=== PATIENT | male | born 1980 | race Caucasian/White ===

== ENCOUNTER 2019-06-16 16:21 | Outpatient (RCR) | payer OTHER, SELFPAY ==
--- NOTE | 2019-06-24 08:08 | PTOPEVAL ---
Thank you for referring this patient to [facility]. Please review, sign, date and return this plan of care [facility]. I agree with and certify that the following plan of care is medically necessary. Referring Physician Date Admitting Provider: Attending Provider: PHYSICIAN NOT ON STAFF Referring Provider: *PT Outpatient Evaluation Start: 06/16/19 16:38 Freq: Status: Active Protocol: Document 06/16/19 16:38 Cirilo (Rec: 06/16/19 17:01 Cirilo [id number]) Therapy Assessment Status Assessment Status Assessment Status Evaluation Evaluation Information Problem Diagnosis R shoulder pain, cervical pain Onset 06/09/19 Subjective Information patient reports he has been Query Text:As Reported By Patient/ having pain in the R shoulder Family more than the cervical spine. he reports the pain has been really noticeable since late last spring. he reports he has a history of symptoms in the R hand and elbow. 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 he reports he is having difficulty sleeping as well and difficulty using the UE without pain. he reports he recently had an injection and is doing a bit better. Prior Level of Function Comments Additional Prior Level of Function patient reports ongoing pain Comments and symptoms for months. he reports difficulty with reaching behind his head, over his head, and behind his back . patient reports he will have pain in the neck as well as of the R shoulder. however, he attributes most of this pain to weather, activity, and R shoulder activity. Pain Assessment Timing of Pain Assessment Timing of Pain Assessment Assessment Pain Scale Pain Scale Used Numeric (1 - 10) Self Report Pain Assessment Right Shoulder(s) Reported Pain Level 3 Pain Description Aching,Shooting,Soreness, Tightness Pain Frequency Chronic,Continuous Current Pain Intensity 3 Lowest Pain Intensity 2 Greatest Pain Intensity 6 Pain Aggravating Factors
== END 2019-07-14 08:28 | disposition home or self-care (01) ==
LOC: CHSPT 16:21
PROVIDERS: PCP Internal Medicine
DX: M25.511 Pain in right shoulder (principal); G89.29 Other chronic pain; M75.51 Bursitis of right shoulder; M75.81 Other shoulder lesions, right shoulder
CPT/HCPCS: 97014; 97110; 97140; 97161; G0283

== ENCOUNTER 2020-02-22 16:09 | Outpatient (CLI) | payer OTHER, SELFPAY ==
[2020-02-22 16:39] LABS: Basophils Absolute Auto 0.04 K/mm3 (0.00-0.10); Basophils Percent Auto 0.4 % (0.0-1.0); Eosinophils Absolute Auto 0.32 K/mm3 (0.02-0.50); Hematocrit 44.5 % (40.0-54.0); Hemoglobin 14.6 g/dL (14.0-18.0); Immature Granulocyte Absolute 0.04 K/mm3 (0.00-0.00); Immature Granulocyte Percent A 0.4 % (0.0-0.0); Lymphocytes Absolute Auto 2.61 K/mm3 (1.10-4.50); Lymphocytes Percent Auto 24.6 % (18.0-42.0); Mean Corpuscular HGB Conc 32.8 g/dL (32.0-36.0); Mean Corpuscular Hemoglobin 27.8 pg (27.0-31.0); Mean Corpuscular Volume 84.8 fL (78.0-102.0); Mean Platelet Volume 9.8 fl (8.7-11.0); Monocytes Percent Auto 6.6 % (2.0-11.0); Neutrophils Absolute Auto 6.9 K/mm3 (1.7-7.2); Platelet Count Result 327 K/mm3 (150-420); Red Blood Count 5.25 M/mm3 (4.70-6.10); Red Cell Distribution Width 12.5 % (11.6-14.4); White Blood Count 10.6 K/mm3 (4.8-10.8)
[2020-02-22 16:49] LABS: Creatinine Urine 246.28 mg/dL (40-278); MALB Creatinine Ratio 15.4 mg/g (0-30)
[2020-02-22 17:59] LABS: Alanine Aminotransferase 22 U/L (16-63); Albumin Level 4.2 g/dL (3.4-5.0); Alkaline Phosphatase 95 U/L (46-116); Anion Gap 10 mmol/L (8-16); Aspartate Amino Transferase 10 U/L (15-37); Bilirubin,Total 0.3 mg/dL (0.00-1.00); Blood Urea Nitrogen 15 mg/dL (7-18); Calcium 8.8 mg/dL (8.5-10.1); Carbon Dioxide 29 mmol/L (21-32); Chloride 101 mmol/L (98-108); Cholesterol 237 mg/dL (0-200); Estimated Glomerular Filt Rate > 60; Free T4 Free Thyroxine 0.96 ng/dL (0.76-1.46); Glucose 223 mg/dL (70-99); HDL Direct 48 mg/dL (40-60); LDL Cholesterol Calculated 163 mg/dL (<130); Osmolality Calculated 297 mOsm/kg (285-295); Potassium 4.1 mmol/L (3.5-5.1); Sodium 140 mmol/L (136-145); Thyroid Stimulating Hormone 1.44 uIU/mL (0.36-3.74); Total Protein 7.9 g/dL (6.4-8.2); Triglycerides 129 mg/dL (0-150)
== END 2020-02-22 16:10 | disposition home or self-care (01) ==
PROVIDERS: PCP Internal Medicine
DX: E11.65 Type 2 diabetes mellitus with hyperglycemia (principal)
CPT/HCPCS: 36415; 80053; 80061; 82043; 84439; 84443; 85025

== ENCOUNTER 2020-11-11 19:07 | Observation (INO) | payer OTHER, SELFPAY ==
--- NOTE | ~2020-11-11 | XR_ITS ---
EXAMINATION: XR chest 2V DATE: 11/11/2020 21:41 INDICATION: Nausea, vomiting and hypertension TECHNIQUE: PA and lateral views of the chest were obtained. COMPARISON: None FINDINGS: The lungs are clear with no focal airspace opacities, pulmonary edema, pleural effusion or pneumothor ax. The cardiomediastinal silhouette is normal. Mild midthoracic spondylosis. IMPRESSION: 1. No acute cardiopulmonary disease. Reviewed, dictated and finalized at location A.
--- NOTE | ~2020-11-11 | CT_ITS ---
EXAMINATION: CT abdomen pelvis wo con DATE: 11/11/2020 21:18 INDICATION: Recurrent nausea and emesis. TECHNIQUE: Computed tomography (CT) of the abdomen and pelvis was performed without intravenous contr ast. Automated exposure control and iterative reconstruction technique were employed. The dose-length product was 360.81 mGy-cm. COMPARISON: 01/19/2014 FINDINGS: Lung bases are clear. Heart size is normal. No pericardial or pleural effusion. Wall thickening in th e distal esophagus likely related to reflux esophagitis. Liver, gallbladder, spleen, pancreas and aline ateral adrenal glands are normal. Kidneys and ureters are normal with no urolithiasis, hydroureterone phrosis or perinephric/ureteral stranding. Bladder is normal. Bowels including the appendix are rosalie l. No free intraperitoneal gas or fluid. No pathologically enlarged abdominal or pelvic lymphadenopat hy. Small right and tiny left fat-containing inguinal hernias. Moderate lower lumbar facet osteoarthr itis. Otherwise minimal degenerative skeletal changes. IMPRESSION: 1. No acute intra-abdominal/pelvic process. 2. Wall thickening the distal esophagus likely related to reflux esophagitis. Reviewed, dictated and finalized at location A.
[2020-11-11 19:29] VITALS: BP 171/108; PULSE 78; RESP 22; TEMP 36.8; O2SAT 100
[2020-11-11] MEDS: ONDANSETRON INJ 4 MG/2 ML VIAL IV PUSH (19:38)
[2020-11-11] MEDS: SODIUM CHLORIDE 0.9% IV 1,000 ML 999 ML IV CONT (19:38)
[2020-11-11 19:51] LABS: Hematocrit 48.9 % (40.0-54.0); Hemoglobin 16.9 g/dL (14.0-18.0); Mean Corpuscular HGB Conc 34.6 g/dL (32.0-36.0); Mean Corpuscular Volume 81.1 fL (78.0-102.0); Mean Platelet Volume 10.1 fl (8.7-11.0); Platelet Count Result 457 K/mm3 (150-420); Red Blood Count 6.03 M/mm3 (4.70-6.10); Red Cell Distribution Width 12.9 % (11.6-14.4)
[2020-11-11 19:58] LABS: White Blood Count 23.5 K/mm3 (4.8-10.8)
[2020-11-11 20:05] LABS: Alanine Aminotransferase 32 U/L (16-63); Albumin Level 5.1 g/dL (3.4-5.0); Alkaline Phosphatase 107 U/L (46-116); Anion Gap 19 mmol/L (8-16); Aspartate Amino Transferase 16 U/L (15-37); Bilirubin,Total 0.8 mg/dL (0.00-1.00); Blood Urea Nitrogen 29 mg/dL (7-18); Calcium 9.9 mg/dL (8.5-10.1); Carbon Dioxide 21 mmol/L (21-32); Chloride 94 mmol/L (98-108); Estimated CRCL calculation 33 ml/min; Estimated Glomerular Filt Rate 25; Lipase 33 U/L (73-393); Osmolality Calculated 303 mOsm/kg (285-295); Potassium 3.9 mmol/L (3.5-5.1); Sodium 134 mmol/L (136-145); Total Protein 9.2 g/dL (6.4-8.2)
[2020-11-11 20:06] LABS: Glucose 459 mg/dL (70-99)
[2020-11-11 20:10] LABS: Lactic Acid Reflex 4.2 mmol/L (0.4-2.0)
[2020-11-11 20:11] LABS: Band Neutrophils Percent 2 % (0-6); Basophils Percent Manual 0 % (0-1); Eosinophils Percent Manual 0 % (1-6); Lymphocytes Absolute Manual 1.88 K/mm3 (1.1-4.5); Lymphocytes Percent Manual 8 % (18-44); Monocytes Absolute Manual 0.47 K/mm3 (0.1-0.90); Monocytes Percent Manual 2 % (3-9); Neutrophils Absolute Manual 21.15 K/mm3 (1.3-6.7); Neutrophils Percent Manual 88 % (46-73); Platelet Estimate Increased (Adequate); Total Cells Counted 100
[2020-11-11] MEDS: SODIUM CHLORIDE 0.9% IV 1,000 ML 500 ML IV CONT (20:25)
--- NOTE | 2020-11-11 20:48 | ED.NAVMDI ---
HPI - Nausea/Vomiting/Diarrhea General Chief complaint: Nausea/Vomiting/Diarrhea Stated complaint: vomiting(overheated) Time Seen by Provider: 11/11/20 19:40 Source: patient Mode of arrival: ambulatory Limitations: no limitations History of Present Illness HPI Narrative: Patient comes in with recurrent nausea and emesis. Nausea and vomiting started today at 1pm. He has stated he has had chills, but no fever. He had his second Covid vaccination about 1 month ago. He had been doing well up until a little past lunch today when he developed recurrent nausea and emesis. He ate a Slim Jenaro and a Banana for lunch, and drank 4 bottles of Gator aid. He does not think anything he ate or drank could have been bad. He doubts food poisoning, but Gator aid had been opened. MD elicited complaint: nausea and vomiting Onset (ago): hour(s) Description of vomiting: food contents Associated nausea: Yes Associated abdominal pain: No Location of pain: none Exacerbating factors: eating Relieving factors: rest Associated symptoms: denies other symptoms, fever/chills (chills today) and weakness Related Data Home Medications Medication Instructions Recorded Confirmed metformin 500 mg tablet,extended 1,000 mg PO DAILY tablet 10/03/20 11/11/20 release 24hr Allergies Allergy/AdvReac Type Severity Reaction Status Date / Time No Known Allergies Allergy Unverified 04/23/19 09:33 Review of Systems Constitutional: Constitutional: Reports no additional constitutional complaints Eyes: Eyes: Reports no additional eye complaints ENT: Reports system reviewed and no additional complaints, except as documented Cardiovascular: Cardiovascular: Reports no additional cardiovascular complaints Respiratory: Respiratory: Reports no additional respiratory complaints Gastrointestinal: Gastrointestinal: Reports no additional gastrointestinal complaints Genitourinary: Genitourinary: Reports no additional male genitourinary complaints Musculoskeletal: Musculoskeletal: Reports no additional musculoskeletal complaints Integumentary/Breasts: Skin/Breast: Reports system reviewed and no additional complaints, except as docu Neurologic: Reports system reviewed and no additional complaints, except as documented Psychiatric: Psychiatric: Reports no additional psychiatric complaints Endocrine: Endocrine: Reports no additional endocrine complaints Hematologic/Lymphatic: Hematologic/Lymphatic: Reports no additional hematologic/lymphatic complaints Allergic/Immunologic: Allergic/Immunologic: Reports no additional allergic/immunologic complaints [facility] Past Medical History Medical History (Updated 11/11/20 @ 21:44 by Rajendra Funez MD) Diabetes type 2, uncontrolled Surgical History Surgical History (Updated 11/11/20 @ 21:34 by Rajendra Funez MD) Hx of tonsillectomy Family History Family History Other Diabetes mellitus Family history of glaucoma Family history of thyroid disease Hypertension Social History Social History (Updated 11/11/20 @ 21:35 by Rajendra Funez MD) Smoking status: Never smoker Alcohol intake: former Substance use: never Gender identity (if verbalized by the patient): Male Sexual Orientation (if Verbalized by the Patient): Straight or Heterosexual Spiritual care concerns: No Exam Const: General: no acute distress and alert Orientation/consciousness: patient oriented x3 HENMT: Head: normal to inspection General nose exam: Normal external nose present and Normal nares present Face and sinus: normal facial exam Mouth: Yes Normal oral and palatal mucosa present Other: throat is erythematous, no tonsils seen Eyes: Cornea: corneas normal Chest: Chest palpation & inspection: normal inspection of the chest Resp: Effort & Inspection: normal respiratory effort Auscultation: clear to auscultation bilaterally Cardio: Rate: regular rate Rhythm: regular
[2020-11-11 20:56] VITALS: BP 175/100; PULSE 84; RESP 18; O2SAT 100
[2020-11-11 20:59] LABS: Acetone Negative (Negative)
--- NOTE | 2020-11-11 21:10 | ECG_ITS ---
Measurements Intervals Climax Rate: 78 P: 68 IN: 121 QRS: 58 QRSD: 88 T: 4 QT: 386 QTc: 442 Interpretive Statements SINUS RHYTHM BORDERLINE ST-T WAVE ABNORMALITY- INFERIOR LEADS BASELINE ARTIFACT- II, III, AVL, AVF, V3-V6 BORDERLINE ECG Electronically Signed On 11-12-2020 7:26:22 CDT by Adi Mclaughlin D.O.
[2020-11-11] MEDS: PROCHLORPERAZINE EDISYLATE 10 MG/2 ML VIAL 5 MG IV PUSH (21:16)
[2020-11-11 21:17] LABS: Appearance Urine Clear (Clear); Bilirubin Urine Negative (Negative); Glucose Urine UA 3+ (Negative); Ketones Urine Trace (Negative); Leukocyte Esterase Ur Negative LEU/UL (Negative); Nitrate Urine Negative (Negative); Protein Urine 2+ (Negative); Specific Grav Ur >= 1.030 (1.010-1.020); Urobilinogen Urine 0.2 mg/dL (0.2-1.0)
[2020-11-11 21:20] LABS: Add Urine Microscopic? YES; Blood Urine Trace-lysed (Negative); Color Urine Light Yellow (Yellow); RBC Urine None seen /hpf (0-2); Squamous Epithelial Cell Urine Few /hpf (Few); WBC Urine None seen /hpf (0-3)
[2020-11-11 21:21] LABS: Bacteria Urine Trace /hpf
[2020-11-11 21:29] LABS: Troponin I < 4.0 ng/L (0.00-60.4)
[2020-11-11] MEDS: INSULIN HUMAN REGULAR (*BKC) 100 UNITS/ML 10 UNITS IV PUSH (22:00)
[2020-11-11 22:09] VITALS: BP 160/80; PULSE 68; RESP 16; O2SAT 100
[2020-11-11 22:15] VITALS: BP 160/80; PULSE 68; RESP 16; O2SAT 100
[2020-11-11 22:30] VITALS: BP 156/82; PULSE 86; RESP 20; TEMP 36.8; O2SAT 94
--- NOTE | 2020-11-11 22:35 | PC.NURSE ---
Patient shivering. Warm blanket given. Patient alert and oriented. Answered all questions without difficulty. Respirations even and unlabored. No SOB noted. Patient denies nausea @ this time. Denies pain/complaints/needs @ this time. Call light in reach.
--- NOTE | 2020-11-11 22:35 | ADMGEN ---
This patient, Ricky Domingo, was admitted to 2nd Floor Room 226-2. Patient oriented to hospital policies and general routines including ID bracelet, bed and alarms, visiting hours, pain management, procedures, bathroom and other care routines, personal items, smoking policy, room service/diet, and visiting hours. Information on how to activate the Rapid Response Team has been discussed. Patient are encouraged to report perceived risks to care and to ask questions if they do not understand what they are told or what they should do.
[2020-11-11 22:48] LABS: Reflex Lactic Acid Yes or No Add Lactic
[2020-11-11] MEDS: SODIUM CHLORIDE 0.9% IV 1,000 ML 200 ML IV CONT (22:48)
--- NOTE | 2020-11-11 23:30 | PC.NURSE ---
Patient lying in bed. Denies pain/nausea/complaints @ this time. No distress noted. Call light in reach.
--- NOTE | 2020-11-11 23:53 | PC.NURSE ---
lactate level and glucose level called to Dr Day, orders to be put in for additional 1 Liter bolus
[2020-11-11 23:54] LABS: Glucose Point of Care 279 mg/dl (65-105)
[2020-11-12] VITALS: BP 174/93; PULSE 86; RESP 20; TEMP 37.1; O2SAT 98
--- NOTE | 2020-11-12 00:20 | PC.NURSE ---
Dr Funez saw patient and discussed tests being done and why. Patient had 500ml emesis with black specks in it. Dr Funez saw emesis. Patient says he just started feeling nauseated all of a sudden, had the emesis and the nausea kind of left . Patient denies any other pain/nausea/complaints/needs @ this time. Call light in reach.
[2020-11-12 00:24] LABS: Base Excess ABG -2.8 mmol/L (0-2); HCO3 ABG 19.8 mmol/L (23-29); Oxygen Content ABG 20.7 %vol (16.0-22.0); Oxygen Saturation ABG 94.7 % (95-97); Oxyhemoglobin 94.2 % (94-100); PCO2 ABG 29.4 mmHg (35-45); PO2 ABG 76.7 mmHg (80-90); Total Hemoglobin 15.6 g/dL; pH ABG 7.45 (7.35-7.45)
[2020-11-12 00:27] LABS: Device ROOM AIR; Modified Allen's Test Pass; Site Drawn LEFT RADIAL
[2020-11-12] MEDS: ONDANSETRON INJ 4 MG/2 ML VIAL IV PUSH ×2 (00:27→15:00)
--- NOTE | 2020-11-12 00:30 | PC.NURSE ---
Zofran given due to patient says he's nauseous again. No further emesis as of this time.
[2020-11-12 00:39] LABS: Anion Gap 12 mmol/L (8-16); Blood Urea Nitrogen 28 mg/dL (7-18); Calcium 8.8 mg/dL (8.5-10.1); Carbon Dioxide 28 mmol/L (21-32); Chloride 101 mmol/L (98-108); Estimated CRCL calculation 46 ml/min; Estimated Glomerular Filt Rate 33; Glucose 307 mg/dL (70-99); Osmolality Calculated 309 mOsm/kg (285-295); Potassium 3.9 mmol/L (3.5-5.1); Sodium 141 mmol/L (136-145)
[2020-11-12] MEDS: METOCLOPRAMIDE HCL INJ 10 MG/2 ML VIAL IV PUSH ×4 (00:48→23:22)
[2020-11-12] MEDS: PANTOPRAZOLE SODIUM IV 40 MG VIAL IV PUSH (00:48)
--- NOTE | 2020-11-12 00:50 | PC.NURSE ---
Patient complaining of still being nauseous. No further emesis. Reglan and Protonix given. No other complaints. Call light in reach.
[2020-11-12 00:51] LABS: Salicylate 1.2 mg/dL (2.8-20.0)
[2020-11-12 00:53] LABS: D Dimer 0.19 mg/L (0.19-0.50)
[2020-11-12] MEDS: SODIUM CHLORIDE 0.9% IV 1,000 ML 999 ML IV CONT (00:55)
--- NOTE | 2020-11-12 01:00 | PC.NURSE ---
Patient having dry heaves @ this time.
[2020-11-12 01:06] LABS: Acetaminophen < 2 ug/mL (10-30)
[2020-11-12 01:06] LABS: Ethanol < 3 mg/dL (0-6)
--- NOTE | 2020-11-12 01:15 | PC.NURSE ---
Patient had 300ml mostly clear with phlegm emesis. After finished patient said he feels a little better. Call light in reach.
--- NOTE | 2020-11-12 01:30 | PC.NURSE ---
No nausea or emesis @ this time. Patient says he feels okay . Patient says his stomach is a little nauseated but less than earlier. No distress noted. Call light in reach.
[2020-11-12] MEDS: SODIUM CHLORIDE 0.9% IV 1,000 ML 200 ML IV CONT ×5 (02:51→23:22)
--- NOTE | 2020-11-12 02:55 | PC.NURSE ---
Patient woke up while nurse was changing IV NS bags and told nurse he isn't nauseous at all and has finally been sleeping some. Denies n/v, pain/complaints of any kind @ this time. No distress noted. Call light in reach.
--- NOTE | 2020-11-12 04:45 | PC.NURSE ---
Patient appears to be sleeping by the rise and fall of his chest. NS infusing to site in RAC without difficulty. No distress noted. Call light in reach.
[2020-11-12 05:39] LABS: Basophils Absolute Auto 0.02 K/mm3 (0.00-0.10); Basophils Percent Auto 0.1 % (0.0-1.0); Hematocrit 42.4 % (40.0-54.0); Hemoglobin 14.3 g/dL (14.0-18.0); Immature Granulocyte Absolute 0.05 K/mm3 (0.00-0.00); Immature Granulocyte Percent A 0.4 % (0.0-0.0); Lymphocytes Absolute Auto 0.81 K/mm3 (1.10-4.50); Lymphocytes Percent Auto 5.9 % (18.0-42.0); Mean Corpuscular HGB Conc 33.7 g/dL (32.0-36.0); Mean Corpuscular Hemoglobin 28.2 pg (27.0-31.0); Mean Corpuscular Volume 83.6 fL (78.0-102.0); Mean Platelet Volume 10.1 fl (8.7-11.0); Monocytes Absolute Auto 0.67 K/mm3 (0.10-0.90); Monocytes Percent Auto 4.9 % (2.0-11.0); Neutrophils Absolute Auto 12.2 K/mm3 (1.7-7.2); Neutrophils Percent Auto 88.7 % (50.0-70.0); Platelet Count Result 323 K/mm3 (150-420); Red Blood Count 5.07 M/mm3 (4.70-6.10); Red Cell Distribution Width 13.1 % (11.6-14.4); White Blood Count 13.8 K/mm3 (4.8-10.8)
[2020-11-12 05:54] LABS: Lactic Acid Reflex 1.6 mmol/L (0.4-2.0)
[2020-11-12 06:00] LABS: Alanine Aminotransferase 25 U/L (16-63); Albumin Level 3.8 g/dL (3.4-5.0); Alkaline Phosphatase 79 U/L (46-116); Anion Gap 12 mmol/L (8-16); Aspartate Amino Transferase < 10 U/L (15-37); Bilirubin,Total 0.7 mg/dL (0.00-1.00); Blood Urea Nitrogen 25 mg/dL (7-18); Calcium 8.3 mg/dL (8.5-10.1); Carbon Dioxide 25 mmol/L (21-32); Chloride 105 mmol/L (98-108); Estimated CRCL calculation 68 ml/min; Estimated Glomerular Filt Rate 53; Glucose 277 mg/dL (70-99); Osmolality Calculated 308 mOsm/kg (285-295); Potassium 3.8 mmol/L (3.5-5.1); Sodium 142 mmol/L (136-145); Total Protein 7.2 g/dL (6.4-8.2)
[2020-11-12 06:02] LABS: Troponin I 16.1 ng/L (0.00-60.4)
--- NOTE | 2020-11-12 06:51 | PM.OP ---
Procedure Note - Brief Procedure Note - Brief Date of procedure: 11/12/20 Pre-op diagnosis: vomiting(overheated) Surgeon: Rajendra Funez MD During the night of 11/12/2020 the patient was closely observed. At one point we got back a lactic acid which was elevated at 6.0. I ultimately came to the conclusion this must have been a lab error, since his anion gap was closing, and his bicarb was coming up. So although I initially gave him increased fluids, this was decreased back to 200cc/hr after BMP and ABG was reviewed.
[2020-11-12 08:00] VITALS: BP 152/87; PULSE 78; RESP 20; TEMP 37.2; O2SAT 97
[2020-11-12 08:00] LABS: Glucose Point of Care 227 mg/dl (65-105)
[2020-11-12 09:11] LABS: Creatine Kinase 200 U/L (39-308)
--- NOTE | 2020-11-12 11:04 | PM.IMHP ---
H&P: HPI History of Present Illness Date/Time: 11/12/20 11:04 Ricky Domingo is a 40 year old male admitted under Observation for Hyperglycemia, Dehydration, Leukocytosis. 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 He became nauseated and began to vomit several times after having Gator aid and banana. Pt states that he also started having hiccups over the last 24 hours. Pt has Leukocytosis and questioned the Pt about any ill contacts, bug bites, potential for consuming undercooked foods to which he responded no. Leukocytosis likely d/t Hyperglycemia and Dehydration. Pt was given approximately 3 L NS in the ER followed by 200ml/h NS gtts and clear liquid diet. Only PMHx of diabetes with his last A1C being 6.4 on October 03, 2020. This AM Pt states he is feeling much better aside from constant hiccups and phlegm production. Pt denies CP, SOB, Abdominal pain/issues, muscle weakness/pain, difficulty urinating, changes in vision or hearing, no balance issues, no fevers/chills. Chief Complaint: Nausea and Vomiting Review of Systems Review of Systems: All systems reviewed & are unremarkable except as noted in HPI and below PMFSH Past Medical History Medical History Diabetes type 2, uncontrolled Surgical History Surgical History Hx of tonsillectomy Family History Family History Other Diabetes mellitus Family history of glaucoma Family history of thyroid disease Hypertension Social History Social History Smoking status: Never smoker Second hand tobacco smoke exposure: No Alcohol intake: former Substance use: never Gender identity (if verbalized by the patient): Male Sexual Orientation (if Verbalized by the Patient): Straight or Heterosexual Spiritual care concerns: No Meds Home Medications and Allergies Home Medications Medication Instructions Recorded Confirmed Type pen needle, diabetic 31 gauge x #100 ea 09/07/20 11/11/20 Rx 3/16 blood sugar diagnostic #100 each 10/03/20 11/11/20 Rx empagliflozin 25 mg-linagliptin 5 1 tablet PO DAILY #90 tablet 10/03/20 11/11/20 Rx mg tablet insulin degludec 100 unit/mL (3 20 unit SUB-Q DAILY 90 Days #18 ml 10/03/20 11/11/20 Rx mL) subcutaneous pen lancets 30 gauge #100 each 10/03/20 11/11/20 Rx metformin 500 mg tablet,extended 1,000 mg PO DAILY tablet 10/03/20 11/11/20 History release 24hr Allergies Allergy/AdvReac Type Severity Reaction Status Date / Time No Known Allergies Allergy Unverified 04/23/19 09:33 Vital Signs Vital Signs - 24 hr 11/11/20 19:29 11/11/20 20:56 11/11/20 22:09 Temperature 98.2 F Pulse Rate 78 84 68 Respiratory Rate 22 H 18 16 Blood Pressure 171/108 H 175/100 H 160/80 H Pulse Oximetry 100 100 100 11/11/20 22:15 11/11/20 22:30 11/12/20 00:00 Temperature 98.3 F 98.8 F Pulse Rate 68 86 86 Respiratory Rate 16 20 20 Blood Pressure 160/80 H 156/82 H 174/93 H Pulse Oximetry 100 94 98 11/12/20 08:00 Temperature 99 F Pulse Rate 78 Respiratory Rate 20 Blood Pressure 152/87 H Pulse Oximetry 97 Exam Const: General: cooperative, no acute distress, well developed, alert, awake, Physically active, tired appearing and uncomfortable (d/t constant hiccups) Nutritional Appearance: average body habitus HENMT: Head: normal to inspection and normocephalic Ears: hearing grossly normal bilaterally, external ears normal, TM's normal bilaterally, no periauricular adenopathy and other General nose exam: Normal external nose present and No nasal discharge present Face and sinus: normal facial exam Mouth: Yes Normal oral and palatal mucosa present, Yes tongue normal, Yes oropharynx normal and Yes moist mucous membranes Throat: posterior oropharynx nor
[2020-11-12 11:11] VITALS: BMI 25.7
[2020-11-12 11:58] LABS: Glucose Point of Care 244 mg/dl (65-105)
[2020-11-12 16:00] VITALS: BP 118/76; PULSE 85; RESP 16; TEMP 37.7; O2SAT 97
[2020-11-12 17:00] LABS: Glucose Point of Care 200 mg/dl (65-105)
[2020-11-12 21:02] LABS: Glucose Point of Care 189 mg/dl (65-105)
--- NOTE | 2020-11-12 21:15 | PC.NURSE ---
Patient denies any c/o pain. Denies any n/v. Hiccups present but patient states better at this time. Continues with IV fluids. Patient reports loss of appetite. Monitoring.
[2020-11-13] VITALS: BP 191/86; PULSE 84; RESP 20; TEMP 37.4; O2SAT 100
--- NOTE | 2020-11-13 00:13 | PC.NURSE ---
Denies any c/o n/v. Hiccups present. Continues with fluids at 200ml/hr, NS. BP at 191/86, asymptomatic. bundle breaker notified.
[2020-11-13] MEDS: SODIUM CHLORIDE 0.9% IV 1,000 ML 200 ML IV CONT (04:18)
--- NOTE | 2020-11-13 04:30 | PC.NURSE ---
Patient denies any c/o pain. No n/v noted. Sleeping at this time. Continues with IV fluids of NS at 200ml/hr.
[2020-11-13] MEDS: METOCLOPRAMIDE HCL INJ 10 MG/2 ML VIAL IV PUSH (05:37)
[2020-11-13 05:57] LABS: Basophils Absolute Auto 0.02 K/mm3 (0.00-0.10); Basophils Percent Auto 0.1 % (0.0-1.0); Eosinophils Absolute Auto 0.03 K/mm3 (0.02-0.50); Eosinophils Percent Auto 0.2 % (1.0-6.0); Hematocrit 41.2 % (40.0-54.0); Hemoglobin 13.9 g/dL (14.0-18.0); Immature Granulocyte Absolute 0.07 K/mm3 (0.00-0.00); Immature Granulocyte Percent A 0.5 % (0.0-0.0); Lymphocytes Absolute Auto 2.46 K/mm3 (1.10-4.50); Lymphocytes Percent Auto 16.7 % (18.0-42.0); Mean Corpuscular HGB Conc 33.7 g/dL (32.0-36.0); Mean Corpuscular Hemoglobin 28.1 pg (27.0-31.0); Mean Corpuscular Volume 83.2 fL (78.0-102.0); Mean Platelet Volume 9.5 fl (8.7-11.0); Monocytes Percent Auto 8.8 % (2.0-11.0); Neutrophils Absolute Auto 10.8 K/mm3 (1.7-7.2); Neutrophils Percent Auto 73.7 % (50.0-70.0); Platelet Count Result 294 K/mm3 (150-420); Red Blood Count 4.95 M/mm3 (4.70-6.10); Red Cell Distribution Width 12.8 % (11.6-14.4); White Blood Count 14.7 K/mm3 (4.8-10.8)
[2020-11-13 06:18] LABS: Alanine Aminotransferase 21 U/L (16-63); Albumin Level 3.7 g/dL (3.4-5.0); Alkaline Phosphatase 73 U/L (46-116); Anion Gap 8 mmol/L (8-16); Aspartate Amino Transferase 11 U/L (15-37); Blood Urea Nitrogen 15 mg/dL (7-18); Calcium 8.4 mg/dL (8.5-10.1); Carbon Dioxide 28 mmol/L (21-32); Chloride 100 mmol/L (98-108); Estimated CRCL calculation 91 ml/min; Estimated Glomerular Filt Rate > 60; Glucose 177 mg/dL (70-99); Osmolality Calculated 286 mOsm/kg (285-295); Potassium 3.9 mmol/L (3.5-5.1); Sodium 136 mmol/L (136-145)
[2020-11-13 08:00] VITALS: BP 162/99; PULSE 84; RESP 20; TEMP 37.1; O2SAT 97
--- NOTE | 2020-11-13 10:15 | PM.DS ---
DS: Admitting Diagnosis Admitting Diagnosis Admitting Diagnosis: Dehydration, Hyperglycemia, N/V DS: Discharge Diagnosis Discharge Diagnosis (1) Uncontrolled type 2 diabetes mellitus with hyperglycemia, with long-term current use of insulin: Code(s): E11.65 - Type 2 diabetes mellitus with hyperglycemia; Z79.4 - senior living (current) use of insulin Status: Acute Assessment and Plan: Glucose levels coming down post Insulin in ER, IVFs administered, Pt tolerating PO fluids, Accu-checks ACHS, SSI, advanced to Diabetic Diet, Hypoglycemic protocol in place, anion gap has closed, Acetone was normal, home DM medications were held Pt was NPO until clear liquids started (do not believe his home DM meds are in our formulary) started SSI, 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 11/13/2020 Glucose has been controlled, will DC Pt home on his usual medication and he is to follow up with his PCP or [facility] Bean [facility] (2) Dehydration after exertion: Code(s): E86.0 - Dehydration Status: Acute Assessment and Plan: Pt current fluid balance is +4,325 as of this AM with urine output of 0.29 ml/kg/h, Tolerating Clear liquids, advancing to Diabetic Diet and if tolerated with DC IVFs, will recheck labs in the AM 11/13/2020 Tolerating PO fluids and food well, continues to have hiccups off and on and will give Pt Reglan and Protonix PO (3) Acute renal failure: Code(s): N17.9 - Acute kidney failure, unspecified Status: Acute Assessment and Plan: Improving after IVFs as noted above, will monitor, ensure Pt is tolerating PO fluids and he is at this time, BUN 25, Cr 1.47 11/13/2020 renal function normalized, encouraged Pt to hydrate when in the heat. (4) Nausea & vomiting: Code(s): R11.2 - Nausea with vomiting, unspecified Status: Acute Assessment and Plan: Pt also has Hiccups, Zofran and Compazine did well for Pt's nausea and vomiting, Changed Compazine to Reglan scheduled for his Hiccups 11/13/2020 Pt has not had any more N/V over night and this AM (5) Leukocytosis, unspecified: Code(s): D72.829 - Elevated white blood cell count, unspecified Status: Acute Assessment and Plan: Likely due to Hyperglycemia and Dehydration, Improved this AM after IVF boluses and gtts, there is no signs of infection from head to toes aside from an old healing wound on the Left Lower Extremity which is not red, draining, or warm to touch, current WBC 13.8. 11/13/2020 WBC has improved, no signs of infection, Pt encouraged to go to PCP or return to hospital should he feel ill again (6) Hypertension: Code(s): I10 - Essential (primary) hypertension Status: Acute Assessment and Plan: [place] today that Pt has a history of hypertension and he use to be on Atenolol, his BP was elevated this AM at 191/86 and after RN Geovanna rechecked it was 162/99. Will restart Atenolol with Pt to f/u with his PCP within a week. DS: Summary Hospital Course Hospital Course: Glucose improved, Rehydrated, restarted Pts BP medications, no more N/V, Hiccups almost resolved Time Spent with Patient Time attestation: Total time spent providing and/or coordinating discharge services: < 30 minutes Exam Const: General: cooperative, healthy appearing, comfortable, no acute distress, well developed, alert, awake and Physically active Nutritional Appearance: average body habitus Resp: Effort & Inspection: normal respiratory effort Auscultation: clear to auscultation bilaterally Cardio: Rate: regular rate Heart sounds: S1 normal heart sound present and S2 normal heart sound present GI: Inspection: normal to inspection GI Palp: Yes Soft to palpation and No Tenderness to palpation present (GI) Auscultation: normal bowel sounds Skin: General skin exam: normal color and dry skin Lesions: no lesions Rashes: no rashes Trauma: no lacerations or abrasions Wounds: wounds noted (small old wound
--- NOTE | 2020-11-15 10:54 | PC.NURSE ---
Unable to contact for discharge call back.
[2020-11-15 12:23] LABS: Glucose Point of Care 366 mg/dl (65-105)
== END 2020-11-13 11:00 | disposition home or self-care (01) ==
LOC: CHSED 21:45 → CHS2ND 22:08
PROVIDERS: Nurse Practitioner Family; Admitting Provider Emergency Medicine; Emergency Provider Emergency Medicine; PCP Internal Medicine; Visit Provider Emergency Medicine
DX: E86.0 Dehydration (principal); N17.9 Acute kidney failure, unspecified; R11.2 Nausea with vomiting, unspecified; R19.7 Diarrhea, unspecified; E11.65 Type 2 diabetes mellitus with hyperglycemia; Z79.4 Long term (current) use of insulin; I10 Essential (primary) hypertension
CPT/HCPCS: 36415; 36600; 71046; 74176; 80048; 80053; 80307; 81001; 82010; 82550; 82805; 82948; 83605; 83690; 84484; 85025; 85380; 87040; 93005; 96361; 96374; 96375; 96376; 99285; C9113; G0378; J0780; J1815; J2405; J2765; J7030

== ENCOUNTER 2020-12-21 02:45 | Day surgery (SDC) | payer OTHER, SELFPAY ==
[2020-12-16 08:26] VITALS: BMI 27.3
--- NOTE | 2020-12-20 10:37 | WPDANESEPPF ---
Anes - Initial Pre Proc Eval Procedure: Operation Date: 12/21/20 10:30 Proposed Procedures p Esophagogastroduodenoscopy - Barrie Weinberg MD Date/Time: 12/20/20 10:37 Surgeon: Barrie Weinberg MD Pre Op Diagnosis: abnormal CAT scan Patient Data Age: 40 Gender: M Height: 1.78 m Weight: 86.3 kg Allergies Allergy/AdvReac Type Severity Reaction Status Date / Time No Known Allergies Allergy Verified 12/21/20 09:39 Home Medications Medication Instructions Recorded Confirmed Type pen needle, diabetic 31 gauge x #100 ea 09/07/20 12/21/20 Rx 3/16 blood sugar diagnostic #100 each 10/03/20 12/21/20 Rx lancets 30 gauge #100 each 10/03/20 12/21/20 Rx atenolol 25 mg PO DAILY #30 tablet 11/13/20 12/21/20 Rx pantoprazole [Protonix] 40 mg PO QAM #14 tablet 11/13/20 12/21/20 Rx empagliflozin-linagliptin 25 tablet PO DAILY 12/16/20 12/21/20 History [Glyxambi] insulin degludec [Tresiba 100 unit SUBCUT DAILY 12/16/20 12/16/20 History FlexTouch U-100] metformin 500 mg PO BID 12/16/20 12/16/20 History Patient hx anesthesia problems: none Family hx anesthesia problems: none PMFSH Past Medical History Medical History (Updated 11/13/20 @ 10:19 by DEBI Teixeira) Diabetes type 2, uncontrolled Hypertension Surgical History Surgical History Hx of tonsillectomy Family History Family History Other Diabetes mellitus Family history of glaucoma Family history of thyroid disease Hypertension Social History Social History Smoking status: Never smoker Second hand tobacco smoke exposure: No Alcohol intake: former Substance use: never Substance use type: does not use Living arrangements: with family Gender identity (if verbalized by the patient): Male Spiritual care concerns: No Anes - Eval Final PreProcedure Day of Procedure 12/20/20 10:37 Patient weight: overweight Heart: regular rate and rhythm Lungs: clear to auscultation and normal air movement Airway: Mallampati scale class II Neurological: alert and oriented Last oral intake: >/= 8 hours ASA classification: III Emergent: no Anesthetic plan: proceed Anesthesia type and monitoring: general and standard monitoring Informed Consent: The patient's anesthetic plan and its attendant risks and benefits were discussed with the patient/family/POA. Questions were solicited and answers provided to the satisfaction of the patient/family/POA.
[2020-12-21] MEDS: LACTATED RINGERS 1,000 ML 150 ML IV CONT (09:28)
[2020-12-21 09:38] LABS: Glucose Point of Care 141 mg/dl (65-105)
[2020-12-21 09:45] VITALS: BP 133/91; PULSE 75; RESP 16; TEMP 36.4; O2SAT 99; BMI 26.4
--- NOTE | 2020-12-21 10:14 | PM.HPGS ---
History of Present Illness History of Present Illness Consent: Risks, benefits, and alternatives have been discussed and questions answered. Patient agrees to proceed with procedure. Chief complaint: abnormal CAT scan Narrative: Ricky Domingo is a 40 year old male with n/v, esophagitis (reviewed CT scan) better with protonix bid and zofran as needed, never had egd. Father had kaba's with esophageal cancer. Review of Systems Constitutional: Constitutional: Denies headache(s) and Denies weakness Eyes: Eyes: Denies blurry vision ENT: Reports Normal hearing present, Denies headache(s) and Denies neck pain Cardiovascular: Cardiovascular: Denies chest pain and Denies dyspnea Respiratory: Respiratory: Denies dyspnea Gastrointestinal: Gastrointestinal: Reports no additional gastrointestinal complaints Genitourinary: Genitourinary: Denies dysuria Musculoskeletal: Musculoskeletal: Denies neck pain Integumentary/Breasts: Skin/Breast: Denies dry skin Neurologic: Reports Normal hearing present, Denies headache(s) and Denies weakness Psychiatric: Psychiatric: Denies anxiety Endocrine: Endocrine: Denies change in body appearance Hematologic/Lymphatic: Hematologic/Lymphatic: Denies easy bleeding Allergic/Immunologic: Allergic/Immunologic: Denies urticaria PMFSH Past Medical History Medical History (Updated 12/21/20 @ 10:15 by Barrie Weinberg MD) Abnormal CT scan, esophagus Diabetes type 2, uncontrolled Hypertension Surgical History Surgical History Hx of tonsillectomy Family History Family History Other Diabetes mellitus Family history of glaucoma Family history of thyroid disease Hypertension Social History Social History Smoking status: Never smoker Second hand tobacco smoke exposure: No Alcohol intake: former Substance use: never Substance use type: does not use Living arrangements: with family Gender identity (if verbalized by the patient): Male Spiritual care concerns: No Meds Home Medications and Allergies Home Medications Medication Instructions Recorded Confirmed Type pen needle, diabetic 31 gauge x #100 ea 09/07/20 12/21/20 Rx 3/16 blood sugar diagnostic #100 each 10/03/20 12/21/20 Rx lancets 30 gauge #100 each 10/03/20 12/21/20 Rx atenolol 25 mg PO DAILY #30 tablet 11/13/20 12/21/20 Rx pantoprazole [Protonix] 40 mg PO QAM #14 tablet 11/13/20 12/21/20 Rx empagliflozin-linagliptin 25 tablet PO DAILY 12/16/20 12/21/20 History [Glyxambi] insulin degludec [Tresiba 100 unit SUBCUT DAILY 12/16/20 12/16/20 History FlexTouch U-100] metformin 500 mg PO BID 12/16/20 12/16/20 History Allergies Allergy/AdvReac Type Severity Reaction Status Date / Time No Known Allergies Allergy Verified 12/21/20 09:39 Vital Signs Vital Signs - 24 hr 12/21/20 09:45 Temperature 97.6 F Pulse Rate 75 Respiratory Rate 16 Blood Pressure 133/91 H Pulse Oximetry 99 Exam Const: General: comfortable and no acute distress HENMT: General nose exam: Normal nares present Eyes: General: appearance normal, both eyes and all related structures Neck: Neck: no JVD Resp: Auscultation: clear to auscultation bilaterally Cardio: Rate: regular rate Rhythm: regular rhythm GI: Inspection: non-distended GI Palp: Yes Soft to palpation Skin: General skin exam: normal color Neuro: General: gait normal Speech: normal speech Extrem: General: normal to inspection Psych: Mental Status: mental status grossly normal Assessment and Plan Assessment and plan (1) Nausea & vomiting: Code(s): R11.2 - Nausea with vomiting, unspecified Status: Acute Assessment and Plan: egd with bx, possible esophagitis, already on ppi and doing better (2) Abnormal CT scan, esophagus:
[2020-12-21] MEDS: BENZOCAINE (*SP) 60 ML SPRAY CAN (HURRICAINE) 1 SPRAY MUCOUS MEM (10:15)
[2020-12-21 10:27] VITALS: BP 107/75; PULSE 75; RESP 18; O2SAT 100
[2020-12-21 10:37] VITALS: BP 112/79; PULSE 80; RESP 22; O2SAT 100
[2020-12-21 10:45] LABS: Glucose Point of Care 131 mg/dl (65-105)
[2020-12-21 10:47] VITALS: BP 128/92; PULSE 72; RESP 20; O2SAT 100
== END 2020-12-21 10:53 | disposition home or self-care (01) ==
PROVIDERS: PCP Internal Medicine; Visit Provider Internal Medicine Gastroenterology
PROC: 0DJ08ZZ Inspection of Upper Intestinal Tract, Via Natural or Artificial Opening Endoscopic (ICD-10-PCS; CPT 43235; principal; 2020-12-21 10:30)
DX: K21.9 Gastro-esophageal reflux disease without esophagitis (principal); K29.70 Gastritis, unspecified, without bleeding; R11.2 Nausea with vomiting, unspecified; E11.9 Type 2 diabetes mellitus without complications; I10 Essential (primary) hypertension; Z79.51 Long term (current) use of inhaled steroids; Z79.4 Long term (current) use of insulin; Z79.84 Long term (current) use of oral hypoglycemic drugs
CPT/HCPCS: 43239; 82948; 88305; J2704; J7120

== ENCOUNTER 2021-01-30 14:27 | Outpatient (CLI) | payer OTHER, SELFPAY ==
--- NOTE | ~2021-01-30 | CT_ITS ---
EXAMINATION: CT abdomen pelvis wo con DATE: 01/30/2021 14:46 INDICATION: Acute kidney failure. Renal stone. Nausea and vomiting. TECHNIQUE: Computed tomography (CT) of the abdomen and pelvis was performed without intravenous contr ast. Automated exposure control and iterative reconstruction technique were employed. The dose-length product was 498.24 mGy-cm. COMPARISON: CT abdomen and pelvis 11/11/2020, 08/19/13 FINDINGS: The visualized portions of the lung bases are clear without pneumonia or pleural effusion. The heart size is normal. No pericardial effusion. The liver, gallbladder, spleen, pancreas, adrenal glands, and kidneys are normal. There is no urolithiasis. There is prominent fat in the inguinal ruben ls that may be small hernias. The appendiceal diameter is 12 mm. No fat stranding around the appendix . There are no pathologically enlarged lymph nodes. There is no free intraperitoneal fluid. There is a benign bone island in right ilium. There is mild lumbar spondylosis. IMPRESSION: 1. Appendiceal diameter of 12 mm, stable from 11/11/2020 and increased from 9 mm on 08/19/2013. This fi nding is indeterminate for appendicitis. Correlate with physical exam. Reviewed, dictated and finalized at location A. IMPRESSION: 1. Appendiceal diameter of 12 mm, stable from 11/11/2020 and increased from 9 mm on 08/19/2013. This finding is indeterminate for appendicitis. Correlate with p hysical exam.
== END 2021-01-30 14:28 | disposition home or self-care (01) ==
LOC: CHSIMG 14:29
PROVIDERS: PCP Internal Medicine; Visit Provider Internal Medicine
DX: N17.9 Acute kidney failure, unspecified (principal); N20.0 Calculus of kidney
CPT/HCPCS: 74176

== ENCOUNTER 2023-11-21 16:22 | Outpatient (CLI) | payer OTHER, SELFPAY ==
[2023-11-21 16:55] LABS: Appearance Urine Clear (Clear); Bilirubin Urine Negative (Negative); Blood Urine 3+ (Negative); Color Urine Yellow (Yellow); Glucose Urine UA 3+ (Negative); Hematocrit 50.9 % (40.0-54.0); Hemoglobin 17.6 g/dL (14.0-18.0); Ketones Urine Negative (Negative); Leukocyte Esterase Ur Negative (Negative); Mean Corpuscular HGB Conc 34.6 g/dL (32-36); Mean Corpuscular Volume 81.1 fL (78.0-102.0); Nitrate Urine Negative (Negative); Platelet Count Result 382 K/mm3 (150-420); Protein Urine 2+ (Negative); Red Blood Count 6.28 M/mm3 (4.70-6.10); Red Cell Distribution Width 12.6 % (11.6-14.4); Specific Grav Ur 1.025 (1.010-1.020); Urobilinogen Urine 0.2 mg/dL (0.2-1.0); White Blood Count 11.4 K/mm3 (4.8-10.8); pH Urine 5.5 (5.0-8.0)
[2023-11-21 17:11] LABS: Add Urine Microscopic? YES; Bacteria Urine Trace /hpf; Hemoglobin A1C 9.4 % (<5.7); Renal Epithelial Cells Urine Few /hpf; Squamous Epithelial Cell Urine Few /hpf (Few); WBC Urine 0-3 /hpf (0-3)
[2023-11-21 17:25] LABS: Alanine Aminotransferase 30 U/L (16-63); Albumin Level 4.8 g/dL (3.4-5.0); Alkaline Phosphatase 111 U/L (46-116); Anion Gap 9 mmol/L (4-12); Aspartate Amino Transferase 18 U/L (15-37); Bilirubin,Total 1.3 mg/dL (0.00-1.00); Blood Urea Nitrogen 34 mg/dL (7-18); Calcium 9.4 mg/dL (8.5-10.1); Carbon Dioxide 28 mmol/L (21-32); Chloride 92 mmol/L (98-108); Cholesterol 276 mg/dL (0-200); Estimated Glomerular Filt Rate 34; Free T4 Free Thyroxine 1.12 ng/dL (0.76-1.46); Glucose 345 mg/dL (70-99); HDL Direct 61 mg/dL (40-60); LDL Cholesterol Calculated 190 mg/dL (<130); Osmolality Calculated 289 mOsm/kg (285-295); Potassium 4.2 mmol/L (3.5-5.1); Prostate Specific Antigen 0.6 ng/mL (< OR = 4.0); Sodium 129 mmol/L (136-145); Thyroid Stimulating Hormone 2.21 uIU/mL (0.36-3.74); Total Protein 9.3 g/dL (6.4-8.2); Triglycerides 127 mg/dL (0-150)
== END 2023-11-21 16:23 | disposition home or self-care (01) ==
PROVIDERS: PCP Internal Medicine; Visit Provider Nurse Practitioner Family
DX: R00.0 Tachycardia, unspecified (principal); R11.2 Nausea with vomiting, unspecified; K21.9 Gastro-esophageal reflux disease without esophagitis; E78.5 Hyperlipidemia, unspecified; E11.9 Type 2 diabetes mellitus without complications; I10 Essential (primary) hypertension; Z12.5 Encounter for screening for malignant neoplasm of prostate; T67.9XXA Effect of heat and light, unspecified, initial encounter
CPT/HCPCS: 36415; 80053; 80061; 81001; 83036; 84153; 84439; 84443; 85027; 87086; G0103

== ENCOUNTER 2023-11-21 18:52 | Emergency (ER) | payer OTHER, SELFPAY ==
--- NOTE | 2023-11-21 18:55 | ECG_ITS ---
Test Date: 2023-11-21 19:45:29 Measurements Intervals [place] Rate: 106 P: 61 [place]: 128 QRS: 44 QRSD: 87 T: 68 QT: 331 QTc: 441 Interpretive Statements SINUS TACHYCARDIA OTHERWISE NORMAL ECG No previous ECG available for comparison Electronically Signed On 11-22-2023 11:02:41 CDT by Mc Elliott M.D.
--- NOTE | 2023-11-21 19:09 | PC.NURSE ---
assumed care. report received from tran babcock. lab completed blood draw
[2023-11-21 19:11] LABS: Basophils Absolute Auto 0.05 K/mm3 (0.00-0.10); Basophils Percent Auto 0.5 % (0.0-1.0); Eosinophils Absolute Auto 0.08 K/mm3 (0.02-0.50); Eosinophils Percent Auto 0.8 % (1.0-6.0); Hematocrit 46.8 % (40.0-54.0); Hemoglobin 16.1 g/dL (14.0-18.0); Immature Granulocyte Absolute 0.04 K/mm3 (0.00-0.00); Immature Granulocyte Percent A 0.4 % (0.0-0.0); Lymphocytes Absolute Auto 2.37 K/mm3 (1.10-4.50); Lymphocytes Percent Auto 22.6 % (18.0-42.0); Mean Corpuscular HGB Conc 34.4 g/dL (32-36); Mean Corpuscular Volume 81.3 fL (78.0-102.0); Mean Platelet Volume 9.8 fl (8.7-11.0); Monocytes Absolute Auto 1.13 K/mm3 (0.10-0.90); Monocytes Percent Auto 10.8 % (2.0-11.0); Neutrophils Absolute Auto 6.81 K/mm3 (1.70-7.20); Neutrophils Percent Auto 64.9 % (50.0-70.0); Platelet Count Result 347 K/mm3 (150-420); Red Blood Count 5.76 M/mm3 (4.70-6.10); Red Cell Distribution Width 12.6 % (11.6-14.4); White Blood Count 10.5 K/mm3 (4.8-10.8)
--- NOTE | 2023-11-21 19:12 | ED.NAVMDI ---
HPI - Nausea/Vomiting/Diarrhea General Chief complaint: Nausea/Vomiting/Diarrhea Stated complaint: irregular labs Time Seen by Provider: 11/21/23 18:55 Source: patient Mode of arrival: ambulatory Limitations: no limitations History of Present Illness HPI Narrative: 43-year-old male with no significant past medical history presents after had blood work performed by his primary which showed abnormal sodium of 129 patient does work outdoors and admits that he has not kept himself hydrated and initially was having some nausea with no muscle aches or pains no fever chills no chest pain no palpitations. Related Data Allergies Allergy/AdvReac Type Severity Reaction Status Date / Time No Known Allergies Allergy Verified 11/21/23 18:53 Review of Systems Review of Systems: All systems reviewed & are unremarkable except as noted in HPI and below PMFSH Past Medical History Medical History Abnormal CT scan, esophagus Acute renal failure Dyslipidemia High serum low density lipoprotein (LDL) cholesterol Hypertension Leukocytosis, unspecified Type 2 diabetes mellitus without complication Surgical History Surgical History Hx of tonsillectomy Family History Family History Other Diabetes mellitus Family history of glaucoma Family history of thyroid disease Hypertension Social History Social History Smoking status: Never smoker Second hand tobacco smoke exposure: No Alcohol intake: former Substance use: never Living arrangements: with family Gender identity (if verbalized by the patient): Male Sexual Orientation (if Verbalized by the Patient): Straight or Heterosexual Spiritual care concerns: No Exam Const: General: healthy appearing Nutritional Appearance: well nourished Orientation/consciousness: patient oriented x3 Limitations: no limitations Resp: Effort & Inspection: normal respiratory effort Auscultation: clear to auscultation bilaterally Cardio: Rate: regular rate Rhythm: regular rhythm GI: GI Palp: Yes Soft to palpation Urinary Catheter: Urinary Catheter: patent and draining Skin: General skin exam: normal color Rashes: no rashes Neuro: General: patient oriented x3, moves all extremities, no meningeal signs and no focal motor deficits Extrem: General: normal to inspection, no clubbing, cyanosis or edema and no pedal edema Course Course Emergency Course: Patient with a low sodium of 129 dehydration IV administered with IV fluids and lab work performed Vital Signs Vital signs: Vital Signs Pulse Rate 107 H 11/21/23 19:50 Respiratory Rate 18 11/21/23 19:50 Blood Pressure 133/93 H 11/21/23 19:50 Pulse Oximetry 99 11/21/23 19:50 Oxygen Delivery Room Air 11/21/23 19:50 Pulse Rate 107 H 11/21/23 19:50 Respiratory Rate 18 11/21/23 19:50 Blood Pressure 133/93 H 11/21/23 19:50 Pulse Oximetry 99 11/21/23 19:50 Oxygen Delivery Room Air 11/21/23 19:50 MDM - Nausea/Vomiting/Diarrhea Lab Data 11/21/23 19:07 11/21/23 19:07 Labs: Lab Results 11/21/23 Range/Units 19:07 WBC 10.5 (4.8-10.8) K/mm3 RBC 5.76 (4.70-6.10) M/mm3 Hgb 16.1 (14.0-18.0) g/dL Hct 46.8 (40.0-54.0) % MCV 81.3 (78.0-102.0) fL MCH 28.0 (27.0-31.0) pg MCHC 34.4 (32-36) g/dL RDW 12.6 (11.6-14.4) % Plt Count 347 (150-420) K/mm3 MPV 9.8 (8.7-11.0) fl Immature Gran % (Auto) 0.4 H (0.0-0.0) % Neut % (Auto) 64.9 (50.0-70.0) % Lymph % (Auto) 22.6 (18.0-42.0) % [place] % (Auto) 10.8 (2.0-11.0) % Eos % (Auto) 0.8 L (1.0-6.0) % Baso % (Auto) 0.5 (0.0-1.0) % Lymph # (Auto) 2.37 (1.10-4.50) K/mm3 [place] # (Auto) 1.13 H (0.10-0.90) K/mm3 Eos # (Auto) 0.08 (0.02-0.50) K/mm3 Baso #
[2023-11-21] MEDS: SODIUM CHLORIDE 0.9% IV 1,000 ML 999 ML IV CONT (19:19)
[2023-11-21 19:26] LABS: Alanine Aminotransferase 30 U/L (16-63); Albumin Level 4.3 g/dL (3.4-5.0); Alkaline Phosphatase 99 U/L (46-116); Anion Gap 7 mmol/L (4-12); Aspartate Amino Transferase 18 U/L (15-37); Bilirubin,Total 1.2 mg/dL (0.00-1.00); Blood Urea Nitrogen 37 mg/dL (7-18); Calcium 8.8 mg/dL (8.5-10.1); Carbon Dioxide 29 mmol/L (21-32); Chloride 93 mmol/L (98-108); Creatine Kinase 402 U/L (39-308); Estimated Glomerular Filt Rate 34; Glucose 374 mg/dL (70-99); Magnesium 2.4 mg/dL (1.8-2.4); Osmolality Calculated 291 mOsm/kg (285-295); Potassium 4.3 mmol/L (3.5-5.1); Sodium 129 mmol/L (136-145)
[2023-11-21 19:50] VITALS: BP 133/93; PULSE 107; RESP 18; O2SAT 99
--- NOTE | 2023-11-21 19:51 | PC.NURSE ---
ER provider aware of current heart rate. continue with discharge after ivf completed
== END 2023-11-21 20:13 | disposition home or self-care (01) ==
PROVIDERS: Emergency Provider Emergency Medicine; PCP Internal Medicine
DX: E86.0 Dehydration (principal); E87.1 Hypo-osmolality and hyponatremia; I10 Essential (primary) hypertension; E11.9 Type 2 diabetes mellitus without complications; E78.5 Hyperlipidemia, unspecified
CPT/HCPCS: 36415; 80053; 82550; 83735; 85025; 93005; 96360; 99283; J7030

== ENCOUNTER 2023-11-26 14:23 | Outpatient (CLI) | payer OTHER, SELFPAY ==
[2023-11-26 14:43] LABS: Hematocrit 43.6 % (40.0-54.0); Hemoglobin 14.8 g/dL (14.0-18.0); Mean Corpuscular HGB Conc 33.9 g/dL (32-36); Mean Corpuscular Hemoglobin 27.9 pg (27.0-31.0); Mean Corpuscular Volume 82.3 fL (78.0-102.0); Platelet Count Result 322 K/mm3 (150-420); Red Cell Distribution Width 12.8 % (11.6-14.4); White Blood Count 9.6 K/mm3 (4.8-10.8)
[2023-11-26 14:44] LABS: Appearance Urine Clear (Clear); Bilirubin Urine 2+ (Negative); Blood Urine Negative (Negative); Color Urine Dark Yellow (Yellow); Glucose Urine UA Negative (Negative); Ketones Urine 2+ (Negative); Leukocyte Esterase Ur Negative (Negative); Nitrate Urine Negative (Negative); Protein Urine 1+ (Negative); Specific Grav Ur >= 1.030 (1.010-1.020); pH Urine 5.5 (5.0-8.0)
[2023-11-26 14:49] LABS: Add Urine Microscopic? YES; RBC Urine None seen /hpf (0-2)
[2023-11-26 14:50] LABS: Bacteria Urine 1+ /hpf; Mucus Urine Few /lpf; Squamous Epithelial Cell Urine Few /hpf (Few); WBC Urine None seen /hpf (0-3)
[2023-11-26 15:26] LABS: Alanine Aminotransferase 26 U/L (16-63); Albumin Level 4.1 g/dL (3.4-5.0); Alkaline Phosphatase 108 U/L (46-116); Anion Gap 8 mmol/L (4-12); Aspartate Amino Transferase 15 U/L (15-37); Bilirubin,Total 0.4 mg/dL (0.00-1.00); Blood Urea Nitrogen 15 mg/dL (7-18); Calcium 8.9 mg/dL (8.5-10.1); Carbon Dioxide 30 mmol/L (21-32); Chloride 100 mmol/L (98-108); Estimated Glomerular Filt Rate > 60; Glucose 259 mg/dL (70-99); Osmolality Calculated 295 mOsm/kg (285-295); Potassium 4.3 mmol/L (3.5-5.1); Sodium 138 mmol/L (136-145); Total Protein 7.3 g/dL (6.4-8.2)
== END 2023-11-26 14:24 | disposition home or self-care (01) ==
LOC: CHSLAB 14:25
PROVIDERS: PCP Internal Medicine; Visit Provider Internal Medicine
DX: E86.0 Dehydration (principal); R79.89 Other specified abnormal findings of blood chemistry
CPT/HCPCS: 36415; 80053; 81001; 85027

== ENCOUNTER 2024-12-21 16:38 | Outpatient (CLI) | payer OTHER, SELFPAY ==
--- OUTSIDE RECORDS SUMMARY | 2024-12-21 16:43 | XMS_ITS | Clinical Summary ---
Author Organization [facility] Address [facility] [place] [address] Care Team Providers Care Kick Press Setter Name Role Phone Unavailable Primary Care Provider Unavailabl e Source Comments [facility],non-owned Affiliates and Associated Physician Practices is amultiple site organization consisting of ambulatory clinics and hospital sitesin [place], [place], [place] and [place]. This disclosure is being madepursuant to the Care Everywhere program and may not contain all information available regarding this patient. Last updated 18.[facility] [employer] Allergies No known active allergies Medications * Be aware that medications may not be up to date on this document. Alwaysverify current medications with the patient. Insulin Lispro (HUMALOG PEN SC) Act darlin METFORMIN HCL PO Act darlin fluticasone propionate (FLONASE) 50 MCG/ACT nasal sprayIndications :Acute sinusitis, recurrence not specified, unspecified location [place] 2 sprays into each nostril once daily 1 bottles 8 Active albuterol HFA (VENTOLIN HFA) 108 (90 BASE) MCG/ACT inhalerIndicatio ns:Acute bronchitis, unspecified organism Inhale 2 puffs by mouth every 6 hours as needed for Wheezing or Cough 1 Inhaler 8 Active acyclovir (ZOVIRAX) 400 MG tablet 0 Active Active Problems Problem Noted Date Diagnosed Date Type 2 diabetes mellitus with hyperglycemia 12/2019 Body mass index (bmi) 30.0-30.9, adult 9 Family History Medical History Relation Name Comments Cancer - Esophageal Father metastis ized Relation Name Status Comments Father Social History Tobacco Use Types Packs/Day Years Used Date Smoking Tobacco: Never Smokeless Tobacco: Never Sex and Gender Information Value Date Recorded Sex Assigned at Not on file Legal Sex Male 10:43 AM CDT Gender Identity Not on file Sexual Orientation Not on file Last Filed Vital Signs Vital Sign Reading Time Taken Comments Blood Pressure 128/92 12/22/2017 10:58 AM CDT Pulse 100 12/22/2017 10:58 AM CDT Temperature 37.2 C (99 F) 12/22/2017 10:58 AM CDT Respiratory Rate 16 12/22/2017 10:58 AM CDT Oxygen Saturation 99% 12/22/2017 10:58 AM CDT Inhaled Oxygen Concentration - - Weight 90.7 kg (200 lb) 08/04/2019 2:33 PM SUPERVISOR POULTRY PROCESSING Height 177.8 cm (5' 10) 08/04/2019 2:33 PM SUPERVISOR POULTRY PROCESSING Body Mass Index 28.7 08/04/2019 2:33 PM SUPERVISOR POULTRY PROCESSING Plan of Treatment Health Maintenance Due Date Last Done Comments COLOGUARD (AGES 45-75) - COL ON CA SCREENING 1979 COLON MONITORING 1979 COLONOSCOPY - COLON CA SCREENING 1979 CT COLONOGRAPHY - COLON CA SCREENING 1979 Colorectal Cancer Screening 1979 FIT - COLON CA SCREENING 1979 FLEX SIG - COLON CA SCREENING 1979 HIV SCREENING 1994 HEPATITIS C SCREENING 01/21/1997 DIABETES-SERUM CREATININE 1997 DTAP/TDAP/TD VACCINES (1 - Tdap) 1998 HEPATITIS B VACCINE (1 of 3 - 19+ 3-dose series) 1998 HPV VACCINE (1 - 3-dose SCDM series) 2006 DIABETES-STATIN 2019 DIABETES-FOOT EXAM WITH MONOFILAMENT 06/09/2019 DIABETES-HGB A1C 06/09/2019 08/14/2018 COVID-19 VACCINE ( - 2023-2 5 season) 2024 DEPRESSION SCREENING 06/03/2024 DIABETES - URINE PROTEIN SCREENING 06/03/2024 INFLUENZA VACCINE (#1) 2025 7, 05/08/2013 ZOSTER VACCINE (1 of 2) 2029 HIB VACCINE Aged Out No longer eligi ble based on patient's age to complete this topic MENINGOCOCCAL (Group B) VACCINE SHARED DECISION-MAKING Aged Out No longer eligible based on patient's age to complete this topic MENINGOCOCCAL GROUPS A/C/Y/W VACCINE Aged Out No longer eligible b ased on patient's age to complete this topic PNEUMOCOCCAL VACCINE Aged Out No long er eligible based on patient's age to complete this topic Insurance [facility] Address: [id number] [place] [address] [facility]
--- OUTSIDE RECORDS SUMMARY | 2024-12-21 16:43 | XMS_ITS | Clinical Summary ---
Author Organization [facility] Address [address] [place] [address] Care Team Providers Care Skein Yarn Drier Name Role Phone Provider, Unknown Primary Care Provider Unavaila ble Allergies No known active allergies Medications Tresiba FlexTouch 200 UNIT/ML Solution Pen-injector INJECT 36 UNITS SUBCUTANEOUSLY ONCE DAILY 3 Active benzonatate (TESSALON) 100 MG Capsule TAKE 1 TO 2 CAPSULES BY MOUTH EVERY 8 HOURS NEEDED FOR COUGH FOR 5 DAYS 3 Active B-D UF III MINI PEN NEEDLES 31G X 5 MM Misc 3 Active predniSONE (DELTASONE) 20 MG Tablet TAKE 2 TABLETS BY MOUTH ONCE DAILY IN THE MORNING WITH BREAKFAST FOR 5 DAYS 3 Active Active Problems No known active problems Social History Tobacco Use Types Packs/Day Years Used Date Smoking Tobacco: Never Smokeless Tobacco: Never Tobacco Cessation:Counseling Given: Not Answered Sex and Gender Information Value Date Recorded Sex Assigned at Not on file Legal Sex Male 12:01 PM COMMISSARY HELPER Gender Identity Not on file Sexual Orientation Not on file Last Filed Vital Signs Vital Sign Reading Time Taken Comments Blood Pressure 146/92 04/10/2023 12:11 PM COMMISSARY HELPER Pulse 111 04/10/2023 12:11 PM COMMISSARY HELPER Temperature 36.4 C (97.5 F) 04/10/2023 12:11 PM COMMISSARY HELPER Respiratory Rate 18 04/10/2023 12:11 PM COMMISSARY HELPER Oxygen Saturation 97% 04/10/2023 12:11 PM COMMISSARY HELPER Inhaled Oxygen Concentration - - Weight 95.3 kg (210 lb) 04/10/2023 12:11 PM COMMISSARY HELPER Height 177.8 cm (5' 10) 04/10/2023 12:11 PM COMMISSARY HELPER Body Mass Index 30.13 04/10/2023 12:11 PM COMMISSARY HELPER Plan of Treatment Health Maintenance Due Date Last Done Comments Hepatitis C Virus (HCV) Screening 1979 Human Papillomavirus (HPV) Immunization (1 - Male 3-dose series) 1994 Hepatitis B Immunization (1 of 3 - 19+ 3-dose series) 1998 Cologuard 01/27/2024 Colonoscopy 01/27/2024 Colorectal Cancer Screening 01/27/2024 Immunochemical Fecal Occult Blood 01/27/2024 SARS-COV-2 Immunization (3 - season) 2024 09/09/2020, 08/10/2020 Influenza Immunization (#1) 2025 12/0 06/2016, 05/08/2013 Respiratory Syncytial Virus (RSV) Immunization (Adult) (1 - 1-dose 75+ series) 2054 Pneumococcal Immunization Combined Aged Out 08/20/2013 No longer eligible based on patient's age to complete this topic DTaP/Tdap/Td Immunization Discontinued 08/12/2018 TdaP Immunization Completed 08/12/2018 Meningococcal Immunization (ACWY) Aged Out No longer eligible based on patient's age to complete this topic Rotavirus Immunization Aged Out No lo nger eligible based on patient's age to complete this topic Insurance [facility] Care Teams Skein Yarn Drier Relationship Specialty Start Date End Date Provider, Unknown UNKNOWN PCP - General 04/11/23
--- OUTSIDE RECORDS SUMMARY | 2024-12-21 16:43 | XMS_ITS | Clinical Summary ---
Author Organization [facility] Address [address] [place] [address] Care Team Providers Care Time Study Analyst Name Role Phone Unavailable Primary Care Provider Unavailabl e Social History Tobacco Use Types Packs/Day Years Used Date Smoking Tobacco: Never Assessed Sex and Gender Information Value Date Recorded Sex Assigned at Not on file Legal Sex Male 10:29 PM EDITOR DICTIONARY Gender Identity Not on file Sexual Orientation Not on file Plan of Treatment Health Maintenance Due Date Last Done Comments Colorectal Cancer Screening Colonoscopy (10 Years) 1979 Annual Physical 1982 Hepatitis C 1997 DTaP, Tdap and Td Vaccines ( 1 - Tdap) 1998 Hepatitis B Vaccines (1 of 3 - 19+ 3-dose series) 1998 HPV Vaccines (1 - 3-dose SCD M series) 2006 COVID-19 Vaccine (2023-2 5 season) 2024 Meningococcal B Vaccine Aged Out No l onger eligible based on patient's age to complete this topic Meningococcal Vaccine Aged Out No destinee shanique eligible based on patient's age to complete this topic Pneumococcal Vaccine: Pediat rics (0 to 5 Years) and At-Risk Patients (6 to 49 Years) Aged Out No longer eligible b ased on patient's age to complete this topic RSV Immunizations Under 20 Months Aged Out No longer eligible based on patient's age to complete this topic
[2024-12-21 17:04] LABS: Add Urine Microscopic? YES; Appearance Urine Clear (Clear); Glucose Urine UA 3+ (Negative); Hematocrit 45.2 % (40.0-54.0); Hemoglobin 15.4 g/dL (14.0-18.0); Leukocyte Esterase Ur Negative LEU/UL (Negative); Mean Corpuscular HGB Conc 34.1 g/dL (32-36); Mean Corpuscular Hemoglobin 27.7 pg (27.0-31.0); Mean Corpuscular Volume 81.4 fL (78.0-102.0); Nitrate Urine Negative (Negative); Platelet Count Result 308 K/mm3 (150-420); Red Blood Count 5.55 M/mm3 (4.70-6.10); Specific Grav Ur >= 1.030 (1.010-1.020); White Blood Count 12.9 K/mm3 (4.8-10.8)
[2024-12-21 17:14] LABS: Alanine Aminotransferase 24 U/L (6-50); Albumin Level 4.5 g/dL (3.5-5.1); Alkaline Phosphatase 113 U/L (38-126); Anion Gap 6 mmol/L (4-12); Aspartate Amino Transferase 24 U/L (17-59); Bilirubin,Total 1.2 mg/dL (0.2-1.3); Blood Urea Nitrogen 13 mg/dL (9-20); Calcium 8.7 mg/dL (8.4-10.2); Carbon Dioxide 29 mmol/L (22-30); Chloride 100 mmol/L (98-107); Estimated Glomerular Filt Rate > 60; Glucose 246 mg/dL (65-110); Osmolality Calculated 288 mOsm/kg (285-295); Potassium 4.0 mmol/L (3.4-5.0); Sodium 135 mmol/L (137-145); Total Protein 8.0 g/dL (6.3-8.2)
== END 2024-12-21 16:39 | disposition home or self-care (01) ==
LOC: CHSLAB 16:41
PROVIDERS: PCP Internal Medicine; Visit Provider Internal Medicine
DX: N45.3 Epididymo-orchitis (principal)
CPT/HCPCS: 36415; 80053; 81001; 85027; 87491; 87591

== ENCOUNTER 2024-12-23 10:26 | Outpatient (CLI) | payer OTHER, SELFPAY ==
--- NOTE | ~2024-12-23 | US_ITS ---
US scrotum doppler INDICATION: Right scrotal swelling and palpable lump lateral aspect. TECHNIQUE: Testicular sonogram utilizing grayscale and color Doppler FINDINGS: The testes are normal in size and appearance. No focal lesions are seen. The right testes measures 4.2 x 3.1 x 2.7 cm centimeters, and the left testis measures 4.4 x 3.2 x 3 cm cm. There is n ormal vascular flow to both testes. In the right epididymis there is a complex partially cystic mass identified in the epididymal head me asuring 10 x 8 x 8 mm. The lesion demonstrates mixed echogenicity with internal septations and possib ly solid components. No internal vascularity is noted on capillary Doppler. Left epididymis within no rmal limits. Small bilateral hydroceles. No evidence for varicocele bilaterally. IMPRESSION: 1. Complex partially cystic mass right epididymis measuring 10 mm. Differential diagnosis includes s permatocele with hemorrhage or infection, epididymal cyst, adenomatoid tumor, chronic epididymitis. M alignancy is much less favored. Recommend short-term follow-up ultrasound in 6-12 weeks to assess for interval change. Consider urology referral. 2: Small bilateral hydroceles, septated on the left. Reviewed, dictated and finalized at location A. IMPRESSION: 1. Complex partially cystic mass right epididymis measuring 10 mm. Differentia l diagnosis includes spermatocele with hemorrhage or infection, epididymal cyst , adenomatoid tumor, chronic epididymitis. Malignancy is much less favored. Rec ommend short-term follow-up ultrasound in 6-12 weeks to assess for interval nat nge. Consider urology referral. 2: Small bilateral hydroceles, septated on the left.
--- OUTSIDE RECORDS SUMMARY | 2024-12-23 10:39 | XMS_ITS | Clinical Summary ---
Author Organization [facility] Address [address] [place] [address] Care Team Providers Care Cork Sorter Name Role Phone Provider, Unknown Primary Care [...] on file Legal Sex Male 12:01 PM LOBBY ATTENDANT Gender Identity Not on file Sexual Orientation Not on file Last Filed Vital Signs Vital Sign Reading Time Taken Comments Blood Pressure 146/92 04/10/2023 12:11 PM LOBBY ATTENDANT Pulse 111 04/10/2023 12:11 PM LOBBY ATTENDANT Temperature 36.4 C (97.5 F) 04/10/2023 12:11 PM LOBBY ATTENDANT Respiratory Rate 18 04/10/2023 12:11 PM LOBBY ATTENDANT Oxygen Saturation 97% 04/10/2023 12:11 PM LOBBY ATTENDANT Inhaled Oxygen Concentration - - Weight 95.3 kg (210 lb) 04/10/2023 12:11 PM LOBBY ATTENDANT Height 177.8 cm (5' 10) 04/10/2023 12:11 PM LOBBY ATTENDANT Body Mass Index 30.13 04/10/2023 12:11 PM LOBBY ATTENDANT Plan of Treatment Health Maintenance Due Date [...] age to complete this topic Insurance [facility] [place] [address] Care Teams Cork Sorter Relationship Specialty Start Date End Date Provider, Unknown UNKNOWN PCP - General 04/11/23
--- OUTSIDE RECORDS SUMMARY | 2024-12-23 10:39 | XMS_ITS | Clinical Summary ---
Author Organization [facility] Address [address] [place] [address] Care Team Providers Care Desizing Machine Operator Head End Name Role Phone Unavailable Primary Care Provider Unavailabl e Social History Tobacco Use Types Packs/Day Years Used Date Smoking Tobacco: Never Assessed Sex and Gender Information Value Date Recorded Sex Assigned at Not on file Legal Sex Male 10:29 PM SUPERVISOR FORCE ADJUSTMENT Gender Identity Not on file Sexual Orientation [...]
--- OUTSIDE RECORDS SUMMARY | 2024-12-23 10:39 | XMS_ITS | Clinical Summary ---
Author Organization [facility] Address [facility] [place] [address] Care Team Providers Care Chief Librarian Branch Name Role Phone Unavailable Primary Care Provider Unavailabl e Source Comments [facility],non-owned Affiliates and Associated Physician Practices is amultiple site organization consisting of ambulatory clinics and hospital sitesin [place], [place], [place] and [place]. This disclosure is being madepursuant to the Care Everywhere program and may not contain all information available regarding this patient. Last updated 18.[facility] [employer] Allergies No known active allergies Medications * Be aware that medications may not be up to date on this document. Alwaysverify current medications with the patient. Insulin Lispro (HUMALOG PEN SC) Act darlin METFORMIN HCL PO Act darlin fluticasone propionate (FLONASE) 50 MCG/ACT nasal sprayIndications :Acute sinusitis, recurrence not specified, unspecified location [place] 2 sprays into each nostril once daily [...] 90.7 kg (200 lb) 08/04/2019 2:33 PM CARE NURSE RN Height 177.8 cm (5' 10) 08/04/2019 2:33 PM CARE NURSE RN Body Mass Index 28.7 08/04/2019 2:33 PM CARE NURSE RN Plan of Treatment Health Maintenance Due Date [...] age to complete this topic [facility]
== END 2024-12-23 10:27 | disposition home or self-care (01) ==
LOC: CHSIMG 10:29
PROVIDERS: PCP Internal Medicine; Visit Provider Internal Medicine
DX: N45.3 Epididymo-orchitis (principal); N43.3 Hydrocele, unspecified
CPT/HCPCS: 76870; 93976